=== PATIENT | male | born 1970 | race Caucasian/White ===

== ENCOUNTER 2018-04-29 16:00 | Emergency (ER) | payer OTHER ==
[2018-04-29] MEDS ORDERED: Lidocaine 1% 30 ML SDV INJECT ONE (16:10)
[2018-04-29] MEDS ORDERED: Diphtheria,Pertussis(Acell),Tetanus Vaccine 0.5 ML Syringe IM ONE (16:38)
--- NOTE | 2018-04-30 19:24 | EDM.PDOC ---
ED HPI GENERAL MEDICAL PROBLEM - General Chief Complaint: Laceration Stated Complaint: CUT HAND Time Seen by Provider: 04/29/18 16:15 Source of Information: Reports: Patient History Limitations: Reports: No Limitations - History of Present Illness INITIAL COMMENTS - FREE TEXT/NARRATIVE: 4 cm laceration to L lateral hand in area of MCP joint. States he cut it on a piece of sheet metal. ROM is WNL. No paresthesia in distal portion of extremity. States he needs a tetanus. Onset Date: 04/29/18 Location: Reports: Upper Extremity, Left Quality: Reports: Sharp Left Hand Pain Score (Numeric/FACES): 2 - Related Data Allergies Allergy/AdvReac Type Severity Reaction Status Date / Time No Known Allergies Allergy Verified 04/29/18 16:11 Home Meds: Home Meds . [No Known Home Meds] 04/29/18 [History] Past Medical History - Past Surgical History HEENT Surgical History: Reports: Adenoidectomy, Tonsillectomy GI Surgical History: Reports: Appendectomy, Bariatric Procedure Musculoskeletal Surgical History: Reports: Other (See Below) Other Musculoskeletal Surgeries/Procedures:: knee surgeries Social & Family History - Tobacco Use Smoking Status *Q: Never Smoker - Alcohol Use Days Per Week of Alcohol Use: 3 Number of Drinks Per Day: 4 Total Drinks Per Week: 12 - Recreational Drug Use Recreational Drug Use: No ED ROS GENERAL - Review of Systems Review Of Systems: See Below Musculoskeletal: Reports: Hand Pain Skin: Reports: No Symptoms Neurological: Reports: No Symptoms ED EXAM, SKIN/RASH Exam: See Below Exam Limited By: No Limitations General Appearance: Alert, WD/WN, No Apparent Distress Extremities: Other (4 cm laceration to L lateral hand in area of MCP joint) ED SKIN PROCEDURES - Additional/Other Procedure(s) Other (Free Text) Procedure(s): Hand was cleansed with normal saline and chlorhexidine. Laceration was anesthetized with 4 ml of 1% lidocaine. Pt. hand was prepped and draped in sterile fashion. devitalized skin and adipose was excised from wound. No injury noted to deep structures of hand. a total of 5 interrupted 4-0 nylon sutures were used to close the laceration. Course - Vital Signs Last Recorded V/S: Last Vital Signs Temp 36.4 C 04/29/18 16:00 Pulse 96 04/29/18 16:00 Resp 16 04/29/18 16:00 BP 127/83 04/29/18 16:00 Pulse Ox 97 04/29/18 16:00 - Orders/Labs/Meds Meds: Medications Discontinued Medications Generic Name Dose Route Start Last Admin Trade Name Brandon PRN Reason Stop Dose Admin Diphtheria/Tetanus/Acell Pertussis 0.5 ml 04/29/18 16:38 04/29/18 16:47 Adacel IM 04/29/18 16:39 0.5 ml .ONCE ONE Administration Lidocaine HCl 30 ml 04/29/18 16:10 04/29/18 16:18 Xylocaine-Mpf 1% INJECT 04/29/18 16:11 30 ml ONETIME ONE Administration Departure - Departure Time of Disposition: 16:58 Disposition: Home, Self-Care 01 Clinical Impression: Laceration - Discharge Information Instructions: Laceration Care, Adult Referrals: PCP,None [Primary Care Provider] - Forms: ED Department Discharge Additional Instructions: Sutures out in 12-14 days Keep covered and dry for 24 hours. Cover if you anticipate the area getting dirty, otherwise keep open to the air as much as possible. Return if redness, swelling, or discharge from the area. - Assessment/Plan Plan: Sutures out in 12-14 days Keep covered and dry for 24 hours. Cover if you anticipate the area getting dirty, otherwise keep open to the air as much as possible. Return if redness, swelling, or discharge from the area.
== END 2018-04-29 16:58 | disposition home or self-care (01) ==
LOC: VM.ED 16:00
DX: S61.412A Laceration without foreign body of left hand, initial encounter (principal); Z23 Encounter for immunization; W26.8XXA Contact with other sharp object(s), not elsewhere classified, initial encounter
CPT/HCPCS: 12002; 90471; 90715; 99283

== ENCOUNTER 2021-07-02 16:38 | Emergency (ER) | payer BC, OTHER ==
[2021-07-02] MEDS ORDERED: 50% Dextrose in Water 50 ML Syringe IV PRN ×3 (17:01→21:07)
[2021-07-02 17:36] LABS: PCO2 ARTERIAL,POC 11 mmHg (35-48)
[2021-07-02 17:59] LABS: PTT,PARTIAL THROMBOPLSTIN TIME 55.5 SEC (25.6-32.8)
--- NOTE | 2021-07-02 17:59 | EDM.PDOC ---
ED HPI GENERAL MEDICAL PROBLEM - General Chief Complaint: Neuro Symptoms/Deficits Stated Complaint: weakness, confusion Time Seen by Provider: 07/02/21 16:40 Source of Information: Reports: EMS, Family History Limitations: Reports: Altered Mental Status, Intoxication - History of Present Illness INITIAL COMMENTS - FREE TEXT/NARRATIVE: Patient arrives via ems with complaints of weakness, confusion. Glucose in the field was 29. No IV access. Protecting airway. Son is with patient. Reports he and his brother had to help him up this morning and back to bed. Went to school and when they came back home this afternoon patient was more confused, had increased weakness. Not following commands. History of ETOH abuse. Started on gabapentin in May to try to help with stopping his drinking. arrives later and states he doesn't eat or drink and just drinks alcohol. Onset: Today, Gradual Duration: Getting Worse Location: Reports: Generalized Severity: Severe Associated Symptoms: Reports: Confusion - Related Data Allergies Allergy/AdvReac Type Severity Reaction Status Date / Time No Known Allergies Allergy Verified 04/29/18 16:11 Home Meds: Home Meds Gabapentin [Neurontin] 600 mg PO DAILY 07/02/21 [History] Potassium Chloride [Klor-Con 10] 10 meq PO DAILY 07/02/21 [History] Past Medical History - Past Surgical History HEENT Surgical History: Reports: Adenoidectomy, Tonsillectomy GI Surgical History: Reports: Appendectomy, Bariatric Procedure Musculoskeletal Surgical History: Reports: Other (See Below) Other Musculoskeletal Surgeries/Procedures:: knee surgeries ED ROS GENERAL - Review of Systems Review Of Systems: Unable To Obtain Reason Not Obtained: mental status change ED EXAM, NEURO - Physical Exam Exam: See Below Exam Limited By: Altered Mental Status General Appearance: Moderate Distress Eye Exam: Bilateral Eye: EOMI Ears: Normal TMs Nose: Normal Inspection, Normal Mucosa, No Blood Throat/Mouth: Normal Inspection, No Airway Compromise Head Exam: Atraumatic, Normocephalic Neck: Normal Inspection, Supple, Non-Tender, Full Range of Motion Respiratory/Chest: No Respiratory Distress, Decreased Breath Sounds, Rhonchi. No: Accessory Muscle Use, Retractions, Splinting, Prolonged Expiration Cardiovascular: Normal Peripheral Pulses, No JVD, No Murmur, No Rub, Tachycardia GI/Abdominal: Normal Bowel Sounds, Soft, Distended, Hepatomegaly Neurological: Other (moving all extremities but unable to follow commands) Back Exam: Normal Inspection, Full Range of Motion, NT Extremities: Pedal Edema (3-4+ pitting bilateral feet) Skin Exam: Diaphoretic, Jaundice #1 Interpretation EKG Date: 07/02/21 Time: 17:15 Rhythm: Other Rate (Beats/Min): 110 [place]: Other QRS: Other ST-T: Other Comparison: Other: EKG Interpretation Comments: Unable to determine due to extensive artifact, patient tremors, inability to remain still to obtain adequate tracing Course - Orders/Labs/Meds Orders: Active Orders 24 hr Category Date Time Status Chest 1V Frontal [CR] Stat Exams 07/02/21 17:06 Ordered CULTURE BLOOD [BC] Stat Lab 07/02/21 18:30 Received CULTURE BLOOD [BC] Stat Lab 07/02/21 18:36 Received Dextrose 50% in Water Med 07/02/21 17:01 Active 50 ml IV ASDIRECTED PRN Dextrose 50% in Water Med 07/02/21 18:15 Active 50 ml IV ASDIRECTED PRN VANCOmycin 2 GM/400 ML 2 gm Med 07/02/21 18:23 Active Premix Bag 1 bag IV STAT Blood Culture x2 Reflex Set [OM.PC] Stat Oth 07/02/21 18:19 Ordered Medication Orders Dextrose/Water (50% Dextrose In Water 50 Ml Syringe) 50 ml IV ASDIRECTED PRN PRN Reason: Hypoglycemia Last Admin: 07/02/21 16:53 Dose: 50 ml Documented by: SAVANNAH Dextrose/Water (50% Dextrose In Water 50 Ml Syringe) 50 ml IV ASDIRECTED PRN PRN Reason: Hypoglycemia Last Admin: 07/02/21 18:18 Dose: 50 ml Documented by: SAVANNAH Vancomycin HCl 2 gm/ Premix 400 mls @ 200 mls/hr IV STAT ONE Stop: 07/02/21 20:22 Last Admin: 07/02/21 18:44 Dose: 200 mls/hr Documented by: SAVANNAH Labs: Laboratory Tests 07/02/21 07/02/21 07/02/21 Range/Units 17:25 17:25 17:25 WBC 16.8 H (4.0-10.0) x10^3/uL RBC 2.22 L (4.5-6.0) x10^6/uL Hgb 8.8 L (14.0-18.0) g/dL Hct 24.7 L (40.0-52.0) % MCV 111.3 H (78.0-93.0) fL MCH 39.6 H (26.0-32.0) pg MCHC 35.6 (32.0-36.0) g/dL RDW Coeff of Isiah 13.2 (10.0-15.0) % Plt Count 222 (130-400) x10^3/uL Immature Gran % (Auto) 0.90 H (0.00-0.43) % Neut % (Auto) 90.9 H (50.0-80.0) % Lymph % (Auto) 2.6 L (25.0-50.0) % [place] % (Auto) 5.5 (2.0-11.0) % Eos % (Auto) 0.0 (0.0-4.0) % Baso % (Auto) 0.1 L (0.2-1.2) % Neut # (Auto) 15.3 H (1.8-7.7) x10^3/uL Lymph # (Auto) 0.4 L (1.0-4.8) x10^3/uL [place] # (Auto) 0.9 H (0.0-0.8) x10^3/uL Eos # (Auto) 0.0 (0.0-0.5) x10^3/uL Baso # (Auto) 0.0 (0.0-0.2) x10^3/uL Immature Gran # (Auto) 0.15 H (0.00-0.07) x10^3/uL PT 21.9 H (9.9-12.5) SEC INR 2.0 (2.0-3.5) APTT 55.5 H (25.6-32.8) SEC D-Dimer, Quantitative 7.42 H (<=0.58) mg/LFEU POC ABG pH (7.35-7.45) pH POC ABG pCO2 (35-48) mmHg POC ABG pO2 (83-108) mmHg POC ABG HCO3 (21-28) mmol/L POC ABG Total CO2 (22-29) mmol/L POC ABG O2 Sat (94-98) % POC ABG Base Excess ((-2)-3) mmol/L POC FiO2 Sodium 119 L* (136-145) mmol/L Potassium 4.7 (3.5-5.1) mmol/L Chloride 85 L (98-107) mmol/L Carbon Dioxide 6 L (21-32) mmol/L Anion Gap 32.7 H (5-15) mmol/L BUN 15 (7-18) mg/dL Creatinine 2.1 H (0.70-1.30) mg/dL Est Cr Clr Drug Dosing TNP Estimated GFR (MDRD) 34 Glucose 80 (70-99) mg/dL POC Glucose (70-99) mg/dL Lactic Acid (0.4-2.0) mmol/L Calcium 8.0 L (8.5-10.1) mg/dL Corrected Calcium 9.7 (8.5-10.1) mg/dL Magnesium 2.6 H (1.8-2.4) mg/dL Total Bilirubin 14.8 H (0.2-1.0) mg/dL Direct Bilirubin 11.86 H (0.00-0.20) mg/dL AST 333 H (15-37) U/L ALT 65 H (16-63) U/L Alkaline Phosphatase 371 H (46-116) U/L Ammonia (19-54) ug/dL Creatine Kinase 528 H* (39-308) U/L Troponin I High Sens 21 (<=76) ng/L NT-Pro-B Natriuret Pep 2378 H (<=125) pg/mL Total Protein 5.1 L (6.4-8.2) g/dL Albumin 1.9 L (3.4-5.0) g/dL Globulin 3.2 Albumin/Globulin Ratio 0.59 Amylase 59 (25-115) U/L Lipase 554 H (73-393) U/L Procalcitonin (0.1-0.50) ng/mL Urine Color (YELLOW) Urine Appearance (CLEAR) Urine pH (5.0-8.0) Ur Specific [place] Urine Protein (NEGATIVE) mg/dL Urine Glucose (UA) (NEGATIVE) mg/dL Urine Ketones (NEGATIVE) mg/dL Urine Occult Blood (NEGATIVE) Urine Nitrite (NEGATIVE) Urine Bilirubin (NEGATIVE) Urine Urobilinogen (0.2) EU/dL Ur Leukocyte Esterase (NEGATIVE) U Hyaline Cast (Auto) Urine RBC (NOT SEEN) /HPF Urine WBC (NOT SEEN) /HPF Ur Squamous Epith Cells (NOT SEEN) /HPF Amorphous Sediment Urine Bacteria (NOT SEEN) /HPF Granular Casts (Auto) Urine Mucus (NOT SEEN) /LPF Urine Opiates Screen (NEGATIVE) Ur Buprenorphine Scrn (NEGATIVE) Ur Oxycodone Screen (NEGATIVE) Urine Methadone Screen (NEGATIVE) Ur Barbituates Screen (NEGATIVE) Ur Phencyclidine Scrn (NEGATIVE) Ur Amphetamines Screen (NEGATIVE) U Methamphetamines Scrn (NEGATIVE) Urine MDMA Screen (NEGATIVE) U Benzodiazepines Scrn (NEGATIVE) Urine Cocaine Screen (NEGATIVE) U Marijuana (THC) Screen (NEGATIVE) Ethyl Alcohol 99 H (0-3) mg/dL SARS CoV-2 RNA Rapid DEBRA (NEGATIVE) 07/02/21 07/02/21 07/02/21 Range/Units 17:25 17:25 17:25 WBC (4.0-10.0) x10^3/uL RBC (4.5-6.0) x10^6/uL Hgb (14.0-18.0) g/dL Hct (40.0-52.0) % MCV (78.0-93.0) fL MCH (26.0-32.0) pg MCHC (32.0-36.0) g/dL RDW Coeff of Isiah (10.0-15.0) % Plt Count (130-400) x10^3/uL Immature Gran % (Auto) (0.00-0.43) % Neut % (Auto) (50.0-80.0) % Lymph % (Auto) (25.0-50.0) % [place] % (Auto) (2.0-11.0) % Eos % (Auto) (0.0-4.0) % Baso % (Auto) (0.2-1.2) % Neut # (Auto) (1.8-7.7) x10^3/uL Lymph # (Auto) (1.0-4.8) x10^3/uL [place] # (Auto) (0.0-0.8) x10^3/uL Eos # (Auto) (0.0-0.5) x10^3/uL Baso # (Auto) (0.0-0.2) x10^3/uL Immature Gran # (Auto) (0.00-0.07) x10^3/uL PT (9.9-12.5) SEC INR (2.0-3.5) APTT (25.6-32.8) SEC D-Dimer, Quantitative (<=0.58) mg/LFEU POC ABG pH (7.35-7.45) pH POC ABG pCO2 (35-48) mmHg POC ABG pO2 (83-108) mmHg POC ABG HCO3 (21-28) mmol/L POC ABG Total CO2 (22-29) mmol/L POC ABG O2 Sat (94-98) % POC ABG Base Excess ((-2)-3) mmol/L POC FiO2 Sodium (136-145) mmol/L Potassium (3.5-5.1) mmol/L Chloride (98-107) mmol/L Carbon Dioxide (21-32) mmol/L Anion Gap (5-15) mmol/L BUN (7-18) mg/dL Creatinine (0.70-1.30) mg/dL Est Cr Clr Drug Dosing Estimated GFR (MDRD) Glucose (70-99) mg/dL POC Glucose (70-99) mg/dL Lactic Acid 17.1 H* (0.4-2.0) mmol/L Calcium (8.5-10.1) mg/dL Corrected Calcium (8.5-10.1) mg/dL Magnesium (1.8-2.4) mg/dL Total Bilirubin (0.2-1.0) mg/dL Direct Bilirubin (0.00-0.20) mg/dL AST (15-37) U/L ALT (16-63) U/L Alkaline Phosphatase (46-116) U/L Ammonia 271 H (19-54) ug/dL Creatine Kinase (39-308) U/L Troponin I High Sens (<=76) ng/L NT-Pro-B Natriuret Pep (<=125) pg/mL Total Protein (6.4-8.2) g/dL Albumin (3.4-5.0) g/dL Globulin Albumin/Globulin Ratio Amylase (25-115) U/L Lipase (73-393) U/L Procalcitonin 1.83 H (0.1-0.50) ng/mL Urine Color (YELLOW) Urine Appearance (CLEAR) Urine pH (5.0-8.0) Ur Specific [place] Urine Protein (NEGATIVE) mg/dL Urine Glucose (UA) (NEGATIVE) mg/dL Urine Ketones (NEGATIVE) mg/dL Urine Occult Blood (NEGATIVE) Urine Nitrite (NEGATIVE) Urine Bilirubin (NEGATIVE) Urine Urobilinogen (0.2) EU/dL Ur Leukocyte Esterase (NEGATIVE) U Hyaline Cast (Auto) Urine RBC (NOT SEEN) /HPF Urine WBC (NOT SEEN) /HPF Ur Squamous Epith Cells (NOT SEEN) /HPF Amorphous Sediment Urine Bacteria (NOT SEEN) /HPF Granular Casts (Auto) Urine Mucus (NOT SEEN) /LPF Urine Opiates Screen (NEGATIVE) Ur Buprenorphine Scrn (NEGATIVE) Ur Oxycodone Screen (NEGATIVE) Urine Methadone Screen (NEGATIVE) Ur Barbituates Screen (NEGATIVE) Ur Phencyclidine Scrn (NEGATIVE) Ur Amphetamines Screen (NEGATIVE) U Methamphetamines Scrn (NEGATIVE) Urine MDMA Screen (NEGATIVE) U Benzodiazepines Scrn (NEGATIVE) Urine Cocaine Screen (NEGATIVE) U Marijuana (THC) Screen (NEGATIVE) Ethyl Alcohol (0-3) mg/dL SARS CoV-2 RNA Rapid DEBRA (NEGATIVE) 07/02/21 07/02/21 07/02/21 Range/Units 17:33 17:48 17:48 WBC (4.0-10.0) x10^3/uL RBC (4.5-6.0) x10^6/uL Hgb (14.0-18.0) g/dL Hct (40.0-52.0) % MCV (78.0-93.0) fL MCH (26.0-32.0) pg MCHC (32.0-36.0) g/dL RDW Coeff of Isiah (10.0-15.0) % Plt Count (130-400) x10^3/uL Immature Gran % (Auto) (0.00-0.43) % Neut % (Auto) (50.0-80.0) % Lymph % (Auto) (25.0-50.0) % [place] % (Auto) (2.0-11.0) % Eos % (Auto) (0.0-4.0) % Baso % (Auto) (0.2-1.2) % Neut # (Auto) (1.8-7.7) x10^3/uL Lymph # (Auto) (1.0-4.8) x10^3/uL [place] # (Auto) (0.0-0.8) x10^3/uL Eos # (Auto) (0.0-0.5) x10^3/uL Baso # (Auto) (0.0-0.2) x10^3/uL Immature Gran # (Auto) (0.00-0.07) x10^3/uL PT (9.9-12.5) SEC INR (2.0-3.5) APTT (25.6-32.8) SEC D-Dimer, Quantitative (<=0.58) mg/LFEU POC ABG pH 7.33 L (7.35-7.45) pH POC ABG pCO2 11 L (35-48) mmHg POC ABG pO2 199 H (83-108) mmHg POC ABG HCO3 5.6 L (21-28) mmol/L POC ABG Total CO2 6.9 L (22-29) mmol/L POC ABG O2 Sat 99.7 H (94-98) % POC ABG Base Excess -20 L ((-2)-3) mmol/L POC FiO2 28 Sodium (136-145) mmol/L Potassium (3.5-5.1) mmol/L Chloride (98-107) mmol/L Carbon Dioxide (21-32) mmol/L Anion Gap (5-15) mmol/L BUN (7-18) mg/dL Creatinine (0.70-1.30) mg/dL Est Cr Clr Drug Dosing Estimated GFR (MDRD) Glucose (70-99) mg/dL POC Glucose (70-99) mg/dL Lactic Acid (0.4-2.0) mmol/L Calcium (8.5-10.1) mg/dL Corrected Calcium (8.5-10.1) mg/dL Magnesium (1.8-2.4) mg/dL Total Bilirubin (0.2-1.0) mg/dL Direct Bilirubin (0.00-0.20) mg/dL AST (15-37) U/L ALT (16-63) U/L Alkaline Phosphatase (46-116) U/L Ammonia (19-54) ug/dL Creatine Kinase (39-308) U/L Troponin I High Sens (<=76) ng/L NT-Pro-B Natriuret Pep (<=125) pg/mL Total Protein (6.4-8.2) g/dL Albumin (3.4-5.0) g/dL Globulin Albumin/Globulin Ratio Amylase (25-115) U/L Lipase (73-393) U/L Procalcitonin (0.1-0.50) ng/mL Urine Color Dark yellow H (YELLOW) Urine Appearance Cloudy H (CLEAR) Urine pH 5.5 (5.0-8.0) Ur Specific [place] 1.020 Urine Protein 30 H (NEGATIVE) mg/dL Urine Glucose (UA) 100 H (NEGATIVE) mg/dL Urine Ketones Trace H (NEGATIVE) mg/dL Urine Occult Blood Negative (NEGATIVE) Urine Nitrite Negative (NEGATIVE) Urine Bilirubin Large H (NEGATIVE) Urine Urobilinogen 2.0 H (0.2) EU/dL Ur Leukocyte Esterase Negative (NEGATIVE) U Hyaline Cast (Auto) Moderate Urine RBC 0-5 (NOT SEEN) /HPF Urine WBC 0-5 (NOT SEEN) /HPF Ur Squamous Epith Cells Few H (NOT SEEN) /HPF Amorphous Sediment Few Urine Bacteria Rare (NOT SEEN) /HPF Granular Casts (Auto) Few Urine Mucus Few H (NOT SEEN) /LPF Urine Opiates Screen Negative (NEGATIVE) Ur Buprenorphine Scrn Negative (NEGATIVE) Ur Oxycodone Screen Negative (NEGATIVE) Urine Methadone Screen Negative (NEGATIVE) Ur Barbituates Screen Negative (NEGATIVE) Ur Phencyclidine Scrn Negative (NEGATIVE) Ur Amphetamines Screen Negative (NEGATIVE) U Methamphetamines Scrn Negative (NEGATIVE) Urine MDMA Screen Negative (NEGATIVE) U Benzodiazepines Scrn Negative (NEGATIVE) Urine Cocaine Screen Negative (NEGATIVE) U Marijuana (THC) Screen Negative (NEGATIVE) Ethyl Alcohol (0-3) mg/dL SARS CoV-2 RNA Rapid DEBRA (NEGATIVE) 07/02/21 07/02/21 07/02/21 Range/Units 18:01 18:05 18:49 WBC (4.0-10.0) x10^3/uL RBC (4.5-6.0) x10^6/uL Hgb (14.0-18.0) g/dL Hct (40.0-52.0) % MCV (78.0-93.0) fL MCH (26.0-32.0) pg MCHC (32.0-36.0) g/dL RDW Coeff of Isiah (10.0-15.0) % Plt Count (130-400) x10^3/uL Immature Gran % (Auto) (0.00-0.43) % Neut % (Auto) (50.0-80.0) % Lymph % (Auto) (25.0-50.0) % [place] % (Auto) (2.0-11.0) % Eos % (Auto) (0.0-4.0) % Baso % (Auto) (0.2-1.2) % Neut # (Auto) (1.8-7.7) x10^3/uL Lymph # (Auto) (1.0-4.8) x10^3/uL [place] # (Auto) (0.0-0.8) x10^3/uL Eos # (Auto) (0.0-0.5) x10^3/uL Baso # (Auto) (0.0-0.2) x10^3/uL Immature Gran # (Auto) (0.00-0.07) x10^3/uL PT (9.9-12.5) SEC INR (2.0-3.5) APTT (25.6-32.8) SEC D-Dimer, Quantitative (<=0.58) mg/LFEU POC ABG pH (7.35-7.45) pH POC ABG pCO2 (35-48) mmHg POC ABG pO2 (83-108) mmHg POC ABG HCO3 (21-28) mmol/L POC ABG Total CO2 (22-29) mmol/L POC ABG O2 Sat (94-98) % POC ABG Base Excess ((-2)-3) mmol/L POC FiO2 Sodium (136-145) mmol/L Potassium (3.5-5.1) mmol/L Chloride (98-107) mmol/L Carbon Dioxide (21-32) mmol/L Anion Gap (5-15) mmol/L BUN (7-18) mg/dL Creatinine (0.70-1.30) mg/dL Est Cr Clr Drug Dosing Estimated GFR (MDRD) Glucose (70-99) mg/dL POC Glucose 64 L 98 (70-99) mg/dL Lactic Acid (0.4-2.0) mmol/L Calcium (8.5-10.1) mg/dL Corrected Calcium (8.5-10.1) mg/dL Magnesium (1.8-2.4) mg/dL Total Bilirubin (0.2-1.0) mg/dL Direct Bilirubin (0.00-0.20) mg/dL AST (15-37) U/L ALT (16-63) U/L Alkaline Phosphatase (46-116) U/L Ammonia (19-54) ug/dL Creatine Kinase (39-308) U/L Troponin I High Sens (<=76) ng/L NT-Pro-B Natriuret Pep (<=125) pg/mL Total Protein (6.4-8.2) g/dL Albumin (3.4-5.0) g/dL Globulin Albumin/Globulin Ratio Amylase (25-115) U/L Lipase (73-393) U/L Procalcitonin (0.1-0.50) ng/mL Urine Color (YELLOW) Urine Appearance (CLEAR) Urine pH (5.0-8.0) Ur Specific [place] Urine Protein (NEGATIVE) mg/dL Urine Glucose (UA) (NEGATIVE) mg/dL Urine Ketones (NEGATIVE) mg/dL Urine Occult Blood (NEGATIVE) Urine Nitrite (NEGATIVE) Urine Bilirubin (NEGATIVE) Urine Urobilinogen (0.2) EU/dL Ur Leukocyte Esterase (NEGATIVE) U Hyaline Cast (Auto) Urine RBC (NOT SEEN) /HPF Urine WBC (NOT SEEN) /HPF Ur Squamous Epith Cells (NOT SEEN) /HPF Amorphous Sediment Urine Bacteria (NOT SEEN) /HPF Granular Casts (Auto) Urine Mucus (NOT SEEN) /LPF Urine Opiates Screen (NEGATIVE) Ur Buprenorphine Scrn (NEGATIVE) Ur Oxycodone Screen (NEGATIVE) Urine Methadone Screen (NEGATIVE) Ur Barbituates Screen (NEGATIVE) Ur Phencyclidine Scrn (NEGATIVE) Ur Amphetamines Screen (NEGATIVE) U Methamphetamines Scrn (NEGATIVE) Urine MDMA Screen (NEGATIVE) U Benzodiazepines Scrn (NEGATIVE) Urine Cocaine Screen (NEGATIVE) U Marijuana (THC) Screen (NEGATIVE) Ethyl Alcohol (0-3) mg/dL SARS CoV-2 RNA Rapid DEBRA Negative (NEGATIVE) Meds: Medications Generic Name Dose Route Start Last Admin Trade Name Brandon PRN Reason Stop Dose Admin Dextrose/Water 50 ml 07/02/21 17:01 07/02/21 16:53 50% Dextrose In Water 50 Ml Syringe IV 50 ml ASDIRECTED PRN Administration Hypoglycemia Dextrose/Water 50 ml 07/02/21 18:15 07/02/21 18:18 50% Dextrose In Water 50 Ml Syringe IV 50 ml ASDIRECTED PRN Administration Hypoglycemia Vancomycin HCl 2 gm/ Premix 400 mls @ 200 mls/hr 07/02/21 18:23 07/02/21 18:44 IV 07/02/21 20:22 200 mls/hr STAT ONE Administration Discontinued Medications Generic Name Dose Route Start Last Admin Trade Name Freq PRN Reason Stop Dose Admin Ceftriaxone Sodium 2 gm 07/02/21 18:20 07/02/21 18:39 Ceftriaxone 2 Gm Vial IVPUSH 07/02/21 18:21 2 gm STAT ONE Administration Sodium Chloride 1,000 mls @ 999 mls/hr 07/02/21 18:25 07/02/21 17:18 Normal Saline IV 07/02/21 19:25 999 mls/hr ONETIME ONE Administration Departure - Departure Time of Disposition: 21:16 Disposition: DC/Tfer to Other 70 Condition: Poor Clinical Impression: Pneumonia - Discharge Information *PRESCRIPTION DRUG MONITORING PROGRAM REVIEWED*: Not Applicable *COPY OF PRESCRIPTION DRUG MONITORING REPORT IN PATIENT SCOTT: Not Applicable Forms: ED Department Discharge, Interfacility Transfer [facility] ED Communication - ED Communication Date/Time Date: 07/02/21 Time Called: 17:30 - Discussed Case With (1) Discussed Case With (1): Admitting Provider, Other (Initial call placed at 1720 to [facility]. Only accepting STEMI, trauma, stroke. Call made to [facility] who did eventually accept. Report given to Dr. Flores, machine i engraver) - My Orders Last 24 Hours: My Active Orders 07/02/21 17:01 Dextrose 50% in Water 50 ml IV ASDIRECTED PRN 07/02/21 17:06 Chest 1V Frontal [CR] Stat 07/02/21 18:15 Dextrose 50% in Water 50 ml IV ASDIRECTED PRN 07/02/21 18:19 Blood Culture x2 Reflex Set [OM.PC] Stat 07/02/21 18:23 VANCOmycin 2 GM/400 ML 2 gm Premix Bag 1 bag IV STAT 07/02/21 18:30 CULTURE BLOOD [BC] Stat 07/02/21 18:36 CULTURE BLOOD [BC] Stat - Assessment/Plan Last 24 Hours: My Active Orders 07/02/21 17:01 Dextrose 50% in Water 50 ml IV ASDIRECTED PRN 07/02/21 17:06 Chest 1V Frontal [CR] Stat 07/02/21 18:15 Dextrose 50% in Water 50 ml IV ASDIRECTED PRN 07/02/21 18:19 Blood Culture x2 Reflex Set [OM.PC] Stat 07/02/21 18:23 VANCOmycin 2 GM/400 ML 2 gm Premix Bag 1 bag IV STAT 07/02/21 18:30 CULTURE BLOOD [BC] Stat 07/02/21 18:36 CULTURE BLOOD [BC] Stat
--- NOTE | 2021-07-02 18:00 | CT ---
[id number] CT/CT Head Stroke Protocol EXAM: NONCONTRAST HEAD CT INDICATION: STROKE CODE. COMPARISON: None. DISCUSSION: There is mild generalized atrophy. The mancia and white matter are normal in attenuation. No mass effect or midline shift. No acute hemorrhage or extra-axial fluid collection. No acute territorial infarct is identified. A limited look at the orbits and paranasal sinuses is unremarkable. Results called at 5:55 PM on 07/02/2021. Images were not immediately available for review due to demographic discrepancy on requisition. IMPRESSION: 1. No acute findings. John Mcgowan MD 07/02/21 [id number] Thank you for allowing us to participate in the care of your patient.
[2021-07-02 18:02] LABS: ANION GAP 32.7 mmol/L (5-15); CHLORIDE,CL 85 mmol/L (98-107)
[2021-07-02 18:03] LABS: SODIUM,NA 119 mmol/L (136-145)
[2021-07-02 18:18] LABS: BUPRENORPHINE,URINE NEGATIVE (NEGATIVE); MARIJUANA,URINE NEGATIVE (NEGATIVE); METHYLENEDIOXYMETHAMP,UR NEGATIVE (NEGATIVE); PHENCYCLIDINE,URINE NEGATIVE (NEGATIVE)
[2021-07-02] MEDS ORDERED: cefTRIAXone 2 GM Vial IVPUSH ONE (18:20)
[2021-07-02] MEDS ORDERED: VANCOmycin 2 GM/400 ML 2 GM in Premix Bag 1 BAG IV ONE (18:23)
[2021-07-02] MEDS ORDERED: Sodium Chloride 0.9% 1,000 ML IV ONE ×2 (18:25→21:53)
--- NOTE | 2021-07-02 18:35 | CT ---
[id number] CT/CT Chest Abdomen Pelvis WO IV EXAM: CHEST ABDOMEN AND PELVIS CT WITHOUT CONTRAST INDICATION: CONFUSION. COMPARISON: Abdomen and pelvis examination of February 17, 2009. DISCUSSION: Respiratory motion limits this exam. diameter. Ultrasound could provide further evaluation. Borderline cardiomegaly. Small hiatus hernia. Mild focal consolidation in the left upper lobe suspicious for pneumonia (image 34 series 3). No pleural or pericardial effusion. No thoracic adenopathy. Abdomen and pelvis: The liver is enlarged and demonstrates severe steatosis. Cholecystectomy. Diffuse body wall edema in the abdomen and pelvis. Small volume ascites. Gastric bypass. Unenhanced images of the pancreas, spleen, adrenal glands, kidneys and small bowel are unremarkable. A mild thick-walled appearance of the ascending colon is centrally to incomplete distention. No free air or adenopathy. Degenerative changes in the spine. The osseous structures are otherwise unremarkable. IMPRESSION: 1. The liver is enlarged and demonstrates severe steatosis. 2. Diffuse body wall edema and small volume ascites. 3. Focal infiltrates in the left upper lobe suspicious for infection. Follow-up is suggested to ensure resolution and exclude other underlying pathology. 4. Indeterminate right thyroid nodule. John Mcgowan MD 07/02/21 [id number] Thank you for allowing us to participate in the care of your patient.
[2021-07-02] MEDS ORDERED: 50% Dextrose in Water 50 ML Syringe ONE (21:03)
[2021-07-02] MEDS ORDERED: Lactated Ringers 1,000 ML IV ONE (21:53)
== END 2021-07-02 21:16 | disposition other institution (70) ==
LOC: VM.ED 16:38
DX: J18.9 Pneumonia, unspecified organism (principal); Z20.822 Contact with and (suspected) exposure to COVID-19
CPT/HCPCS: 36415; 36600; 36680; 70470; 71250; 74176; 80053; 80143; 80179; 80305-QW; 80307; 81001; 82140; 82150; 82248; 82550; 82803; 82947; 83605; 83690; 83735; 83880; 84145; 84484; 85025; 85379; 85610; 85730; 87040; 87077; 93005; 93010; 96365; 96366; 96375; 96376; 99284; 99285-25; J0696; J3370; J7030; J7120; U0002